=== PATIENT | male | born 1975 | race Caucasian/White ===

== ENCOUNTER 2016-06-29 15:01 | Emergency (ER) | payer OTHER ==
[~2016-06-29] VITALS: Ht 175.3 cm; Wt 76.0 kg
[2016-06-29 15:03] VITALS: Ht 175.3 cm; Wt 76.0 kg
[2016-06-29] MEDS ORDERED: HYDROmorphONE 1 MG/ML SYG IV STA (15:41)
[2016-06-29] MEDS ORDERED: ACETAMINOPHEN 500 MG TAB PO STA (15:41)
[2016-06-29] MEDS ORDERED: ONDANSETRON 4 MG INJ IV STA (15:41)
[2016-06-29 16:31] LABS: ADD SCAN DIFF NO
[2016-06-29 16:37] LABS: BASOPHILS % 0.3 % (0.0-2.0); EOSINOPHILS # 0.1 10^3/ul (0.0-0.5); EOSINOPHILS % 0.4 % (0.0-7.0); HEMATOCRIT 44.4 % (42.0-52.0); HEMOGLOBIN 15.1 g/dl (14.0-18.0); LYMPHOCYTES # 1.4 10^3/ul (0.8-2.9); LYMPHOCYTES % 9.1 % (15.0-51.0); MEAN CORPUSCULAR HEMOGLOBIN 30.6 pg (29.0-33.0); MEAN CORPUSCULAR VOLUME 90.1 fl (82.0-101.0); MEAN PLATELET VOLUME 10.1 fl (7.4-10.4); MONOCYTE # 1.4 10^3/ul (0.3-0.9); MONOCYTES % 8.8 % (0.0-11.0); NEUTROPHIL # 12.8 10^3/ul (1.6-7.5); PLATELET COUNT 270 10^3/UL (140-415); RED BLOOD COUNT 4.93 10^6/ul (4.70-6.10); WHITE BLOOD COUNT 15.7 10^3/ul (4.8-10.8)
[2016-06-29 16:52] LABS: ALBUMIN 4.5 g/dl (3.3-4.9); ALBUMIN/GLOBULIN RATIO 1.6; BILIRUBIN,INDIRECT 0.4 mg/dl (0-1.1); BILIRUBIN,TOTAL 0.4 mg/dl (0.2-1.3); CALCIUM 9.6 mg/dl (8.4-10.2); CREATININE 0.86 mg/dl (0.61-1.24); POTASSIUM 4.1 mmol/L (3.5-5.1); TOTAL PROTEIN 7.3 g/dl (6.1-8.1)
[2016-06-29] MEDS ORDERED: CIPROFLOXACIN 400MG/D5W 200 ML IVPB STA (17:18)
--- NOTE | 2016-06-29 17:47 | ERA ---
ER Documentation Chief Complaint Date/Time DATE: 06/29/16 TIME: 17:42 Chief Complaint RT EAR AND PAIN ON RT SIDE OF JAW HPI This is a 41 year old male presenting to the emergency department complaining of fever, right ear and jaw pain for two weeks. Patient states that he went to [facility] 2 weeks ago on 06/16/16 and was diagnosed with Otitis media and was given Augmentin for 10 days, patient states that he finished the antibiotic course and stated that he returned there since it did not improve on 06/27/2016 and was diagnosed with otitis externa and was given Cortisporin. Patient states that pain has worsened and he is now febrile. He states pain is radiating from his ear to his jaw. He was seen by his primary care physician Dr. Bridget Sawant who has sent him here for further evaluation and management. Patient states he has taken Dayquil at 10:30am without any relief. ROS All systems reviewed and are negative except as per history of present illness. Medications Home Meds Active Scripts Ibuprofen* (Ibuprofen*) 600 Mg Tablet, 600 MG PO Q6H Y for PAIN, #30 TAB Prov:BASIL MENDIOLA PA-C 06/29/16 Hydrocodone/Acetaminophen (Tubac 5-325 Tablet) 1 Each Tablet, 2 TAB PO Q6H Y for PAIN, #30 TAB Prov:BASIL MENDIOLA PA-C 06/29/16 Ciprofloxacin Hcl/Dexameth (Ciprodex Otic Suspension) 7.5 Ml Drops.susp, 4 DROP RIGHT EAR BID for 7 Days, EA Prov:BASIL MENDIOLA PA-C 06/29/16 Ciprofloxacin Hcl* (Ciprofloxacin Hcl*) 500 Mg Tablet, 500 MG PO BID for 10 Days , TAB Prov:BASIL MENDIOLA PA-C 06/29/16 Allergies Allergies: Coded Allergies: No Known Allergy (Unverified , 06/29/16) PMhx/Soc Medical and Surgical Hx: pt denies Medical Hx, pt denies Surgical Hx Hx Alcohol Use: No Hx Substance Use: No Hx Tobacco Use: No Smoking Status: Never smoker Physical Exam Vitals Vital Signs Date Time Temp Pulse Resp B/P Pulse Ox O2 Delivery O2 Flow Rate FiO2 06/29/16 19:19 98.5 89 18 115/58 97 Room Air 06/29/16 16:59 100.0 06/29/16 15:03 101.3 98 18 122/67 99 Physical Exam GENERAL: well-developed/well-nourished, in no apparent distress, non-toxic appearing HEAD: NC/AT, no swelling noted in frontal or maxillary areas. EARS: right TM is obscured from discharge and external ear swelling, positive mastoid tenderness on the right, left tympanic membrane is intact without erythema or effusion NARES: Patent THROAT: oropharynx non-erythematous without exudates, no tonsil enlargement EYES: Conjunctiva normal NECK: Supple, no lymphadenopathy PULM: CTA bilaterally, no rales, rhonchi, or wheezing heard CV: Normal S1S2, RRR, good capillary refill GI: Soft, non-distended, normal bowel sounds, non-tender BACK: No midline tenderness, no masses EXT No clubbing, cyanosis, or edema NEURO: Alert and Orientated SKIN: Intact, normal turgor PSYCH: Normal mood and mentation Result Diagram: 06/29/16 1610 06/29/16 1610 Results 24 hrs Laboratory Tests Test 06/29/16 16:10 White Blood Count 15.710^3/ul Red Blood Count 4.9310^6/ul Hemoglobin 15.1g/dl Hematocrit 44.4% Mean Corpuscular Volume 90.1fl Mean Corpuscular Hemoglobin 30.6pg Mean Corpuscular Hemoglobin Concent 34.0g/dl Red Cell Distribution Width 12.0% Platelet Count 85680^3/UL Mean Platelet Volume 10.1fl Neutrophils % 81.0% Lymphocytes % 9.1% Monocytes % 8.8% Eosinophils % 0.4% Basophils % 0.3% Nucleated Red Blood Cells % 0.0/100WBC Neutrophils # 12.810^3/ul Lymphocytes # 1.410^3/ul Monocytes # 1.410^3/ul Eosinophils # 0.110^3/ul Basophils # 0.010^3/ul Nucleated Red Blood Cells # 0.010^3/ul Sodium Level 138mmol/L Potassium Level 4.1mmol/L Chloride Level 105mmol/L Carbon Dioxide Level 25mmol/L Anion Gap 12 Blood Urea Nitrogen 8mg/dl Creatinine 0.86mg/dl Glucose Level 107mg/dl Lactic Acid Level 1.1mmol/L Calcium Level 9.6mg/dl Total Bilirubin 0.4mg/dl Direct Bilirubin 0.00mg/dl Indirect Bilirubin 0.4mg/dl Aspartate Amino Transf (AST/SGOT) 25IU/L Alanine Aminotransferase (ALT/SGPT) 35IU/L Alkaline Phosphatase 106IU/L Total Protein 7.3g/dl Albumin 4.5g/dl Globulin 2.80g/dl Albumin/Globulin Ratio 1.60 Lipase 43U/L Current Medications Medications (Trade) Dose Ordered Sig/Sammy Route PRN Reason Start Time Stop Time Status Last Admin Dose Admin Acetaminophen (Tylenol Tab) 1,000 mg ONCE STAT PO 06/29/16 15:41 06/29/16 15:46 DC 06/29/16 16:27 Hydromorphone HCl (Dilaudid) 0.5 mg ONCE STAT IV 06/29/16 15:41 06/29/16 15:46 DC 06/29/16 16:26 Ondansetron HCl 4 mg 4 mg ONCE STAT IV 06/29/16 15:41 06/29/16 15:46 DC 06/29/16 16:26 Ciprofloxacin/ Dextrose (Cipro Ivpb) 200 ml @ 200 mls/hr ONCE STAT IVPB 06/29/16 17:18 06/29/16 18:17 DC 06/29/16 17:24 Procedures/MDM This is a 41 year old male presenting to the emergency department complaining of fever, right ear and jaw pain for two weeks. Likely Otitis Externa with early mastoiditis. Patient states that he went to [facility] 2 weeks ago on 06/16/16 and was diagnosed with Otitis media and was given Augmentin for 10 days, patient states that he finished the antibiotic course and stated that he returned there since it did not improve on 06/27/2016 and was diagnosed with otitis externa and was given Cortisporin. Patient states that pain has worsened and he is now febrile. On examination, patient had edema and swelling of the right ear canal with discharge and mastoid tenderness. Patient was febrile and was given Tylenol. IV access established.Lab work was drawn. CBC did not show any evidence of anemia. Patient had mild leukocytosis. CMP did not show any evidence of renal, liver, or electrolyte abnormalities. Lipase was normal. UA did not show any evidence of hemoglobin or urinary tract infection. CT of the mastoids and ears was done and radiologist stated: 1. Narrowing of the right external auditory canal with suggestion of periauricular soft tissue swelling suspicious for otitis externa. Also, partial right mastoid and middle ear opacification which may reflect mastoiditis /otitis media. Correlate clinically. 2. Partial left mastoid air cell and minimal middle ear opacification along with thickened left tympanic membrane. Findings could also reflect mastoiditis and otitis media. Correlate clinically. I have consulted my supervising physician who suggested patient is appropriate for outpatient antibiotics Cipro and close follow-up with ENT specialist or . In the ED, patient was given 0.5mg Dilaudid, Cipro 500mg and Zofran through IV. Prescription Ciprodex, Cipro 500mg PO and Tubac was provided for outpatient. I have discussed the diagnostic testing with patient, discussed to follow-up with ENT. I discussed to return to the ER for any worsening signs or symptoms. Patient is hemodynamically stable, nontoxic appearing for discharge with precautions. He understands and agrees with this plan Departure Diagnosis: Primary Impression: Otitis externa Qualified Code: H60.501 - Acute otitis externa of right ear, unspecified type Additional Impression: Mastoiditis Qualified Code: H70.91 - Mastoiditis, right Condition: Stable BASIL MENDIOLA PA-C Jun 29, 2016 17:47
--- NOTE | 2016-06-29 18:06 | RADRPT ---
PROCEDURE: CT temporal bones without contrast CLINICAL INDICATION: Right ear pain TECHNIQUE: CT of the temporal bones without contrast was performed on a multidetector CT scanner, with multiplanar reformats. One or more of the following dose reduction techniques were used: Autom ated exposure control, adjustment in mA and / or kV according to patient size, use of iterative rajiv nstructive technique. CTDIvol = 43 mGy and DLP = 441 mGy-cm. COMPARISON: None available FINDINGS: Right temporal bone: There is narrowing of the external auditory canal, greater along the cartilaginous portion with sugg estion of soft tissue swelling in the periauricular region. There is scattered partial mastoid air cell opacification and partial opacification of the middle ear cavity. No osseous erosive changes a re identified and the ossicles and scutum appear intact. The bony labyrinth structures are within n ormal limits and the otic capsule is intact. The vestibular aqueduct is not enlarged. The internal auditory canal is normal in caliber. Left temporal bone: The external auditory canal is grossly patent. Tympanic membrane appears relatively thickened. The re is scattered partial mastoid air cell opacification and minimal opacification of the middle ear c avity along the attic. No osseous erosive changes are identified and the ossicles and scutum appear intact. The bony labyrinth structures are within normal limits and the otic capsule is intact. The vestibular aqueduct is not enlarged. The internal auditory canal is normal in caliber. Mild right maxillary sinus mucosal thickening or fluid is also seen. IMPRESSION: 1. Narrowing of the right external auditory canal with suggestion of periauricular soft tissue swel ling suspicious for otitis externa. Also, partial right mastoid and middle ear opacification which may reflect mastoiditis/otitis media. Correlate clinically. 2. Partial left mastoid air cell and minimal middle ear opacification along with thickened left tym panic membrane. Findings could also reflect mastoiditis and otitis media. Correlate clinically. RPTAT: VV .Gerald Silvestre MD, MD Date Time Electronically viewed and signed by .Gerald Silvestre MD, MD on 06/29/2016 18:06 .O/
[2016-06-29] MEDS ORDERED: CIPR500T4 PO (18:43)
[2016-06-29] MEDS ORDERED: CIPR7.5D4 RIGHT EAR (18:43)
[2016-06-29] MEDS ORDERED: IBUP-1542 PO (18:44)
[2016-06-29] MEDS ORDERED: HYDR-906 PO (18:44)
[2016-06-29 19:19] VITALS: BP 115/58; PULSE 89; RESP 18; TEMP 98.5
== END 2016-06-29 19:19 | disposition home or self-care (01) ==
LOC: FTE 15:01
DX: H60.501 Unspecified acute noninfective otitis externa, right ear (principal); H70.91 Unspecified mastoiditis, right ear
CPT/HCPCS: 36415; 70480; 80053; 83605; 83690; 85025; 87040; 96374; 96375; J0744; J1170; J2405; Z7502; Z7610

== ENCOUNTER 2017-06-20 09:43 | Emergency (ER) | END 2017-06-20 14:15 | disposition home or self-care (01) ==

== ENCOUNTER 2017-12-28 22:33 | Emergency (ER) | END 2017-12-28 23:48 | disposition home or self-care (01) ==

== ENCOUNTER 2017-12-31 07:06 | Emergency (ER) | END 2017-12-31 11:56 | disposition home or self-care (01) ==

== ENCOUNTER 2018-07-23 01:28 | Emergency (ER) | payer OTHER ==
[~2018-07-23] VITALS: Ht 180.3 cm; Wt 82.7 kg
[~2018-07-23 01:28] MED LIST: AMOX1TAB10 PO; CIPR500T4 PO; CIPR7.5D BOTH EARS; CIPR7.5D RIGHT EAR; HYDR-4011 PO; IBUP-1542 PO; NPH10OT RIGHT EAR
[2018-07-23 01:38] VITALS: Ht 180.3 cm; Wt 82.7 kg
[2018-07-23] MEDS ORDERED: ACET-141 PO (07:11)
[2018-07-23 07:22] VITALS: BP 128/68; PULSE 68; RESP 17
--- NOTE | 2018-07-23 07:23 | ERD ---
ER Documentation Chief Complaint Chief Complaint right wrist pain, fell off skateboard x 1 week ago, also c/o right earache ROS All systems reviewed and are negative except as per history of present illness. Medications Home Meds Active Scripts Acetaminophen* (Acetaminophen*) 500 MG Extra Strength Tablet, 500 MG PO Q4H PRN for PAIN AND OR ELEVATED TEMP, #30 TAB Prov:EUGENIAMYA 07/23/18 Hydrocodone/Acetaminophen ([place] 5-325 Tablet) 1 Each Tablet, 1 TAB PO Q6H PRN for PAIN, #5 TAB Prov:MEDILALUISSHANIKA F 12/31/17 Ciprofloxacin Hcl* (Ciprofloxacin Hcl*) 500 Mg Tablet, 500 MG PO BID for 5 Days, TAB Prov:PASILABAN,FRANCOISEAR F 12/31/17 Ciprofloxacin Hcl/Dexameth (Ciprodex Otic Suspension) 7.5 Ml Drops.susp, 4 DROP BOTH EARS BID for 7 Days, EA Prov:PASILABAN,FRANCOISEAR F 12/31/17 Hydrocodone/Acetaminophen ([place] 5-325 Tablet) 1 Each Tablet, 1 TAB PO Q6H PRN for PAIN, #7 TAB Prov:MERISSA BIRD PA-C 12/28/17 Neomycin/Polymyxin/Hydrocort* (Cortisporin* Otic) 10 Ml Susp, 4 DROP RIGHT EAR QID, #1 EA Prov:MERISSA BIRD PA-C 12/28/17 Amoxicillin/Potassium Clav (Amox-Clav 875-125 mg Tablet) 875-125 mg Tab, 1 TAB PO BID for 7 Days, #14 TAB Prov:MERISSA BIRD PA-C 12/28/17 Ibuprofen* (Ibuprofen*) 600 Mg Tablet, 600 MG PO Q6H PRN for PAIN, #30 TAB Prov:BASIL MENDIOLA PA-C 06/29/16 Hydrocodone/Acetaminophen ([place] 5-325 Tablet) 1 Each Tablet, 2 TAB PO Q6H PRN for PAIN, #30 TAB Prov:BASIL MENDIOLA PA-C 06/29/16 Ciprofloxacin Hcl/Dexameth (Ciprodex Otic Suspension) 7.5 Ml Drops.susp, 4 DROP RIGHT EAR BID for 7 Days, EA Prov:BASIL MENDIOLA PA-C 06/29/16 Ciprofloxacin Hcl* (Ciprofloxacin Hcl*) 500 Mg Tablet, 500 MG PO BID for 10 Days, TAB Prov:BASIL MENDIOLA Ariel CANTU 06/29/16 Allergies Allergies: Coded Allergies: No Known Allergy (Unverified , 12/28/17) PMhx/Soc Medical and Surgical Hx: pt denies Medical Hx, pt denies Surgical Hx Hx Alcohol Use: No Hx Substance Use: No Hx Tobacco Use: Yes Smoking Status: Current every day smoker Physical Exam Vitals Vital Signs Date Temp Pulse Resp B/P (MAP) Pulse Ox O2 O2 Flow FiO2 Time Delivery Rate 07/23/18 98.0 68 17 128/68 98 Room Air 07:22 (88) 07/23/18 98.2 74 18 122/71 99 01:38 (88) Physical Exam Const: No acute distress Head: Atraumatic Eyes: Normal Conjunctiva ENT: Normal External Ears, Nose and Mouth. Neck: Full range of motion. No meningismus. Resp: Clear to auscultation bilaterally Cardio: Regular rate and rhythm, no murmurs Abd: Soft, non tender, non distended. Normal bowel sounds Skin: No petechiae or rashes Back: No midline or flank tenderness Ext: No cyanosis, or edema Neur: Awake and alert Psych: Normal Mood and Affect Departure Diagnosis: Primary Impression: Wrist injury Encounter type: initial encounter Laterality: right Qualified Codes: S69.91XA - Unspecified injury of right wrist, hand and finger(s), initial encounter Condition: Fair Patient Instructions: Wrist Sprain Referrals: [facility] YOU HAVE RECEIVED A MEDICAL SCREENING EXAM AND THE RESULTS INDICATE THAT YOU DO NOT HAVE A CONDITION THAT REQUIRES URGENT TREATMENT IN THE EMERGENCY DEPARTMENT. FURTHER EVALUATION AND TREATMENT OF YOUR CONDITION CAN WAIT UNTIL YOU ARE SEEN IN YOUR DOCTORS OFFICE WITHIN THE NEXT 1-2 DAYS. IT IS YOUR RESPONSIBILITY TO MAKE AN APPOINTMENT FOR FOLOW-UP CARE. IF YOU HAVE A PRIMARY DOCTOR --you should call your primary doctor and schedule an appointment IF YOU DO NOT HAVE A PRIMARY DOCTOR YOU CAN CALL OUR PHYSICIAN REFERRAL HOTLINE AT IF YOU CAN NOT AFFORD TO SEE A PHYSICIAN YOU CAN CHOSE FROM THE FOLLOWING [facility] [address] [facility]. [facility] [address] [facility]. [facility] [address] [facility] [address] [facility] [address] [facility]. [facility]. [address] Additional Instructions: Call your primary care doctor TOMORROW for an appointment during the next 1-2 days.See the doctor sooner or return here if your condition worsens before your appointment time. MYA BELLO DO July 23, 2018 07:23
== END 2018-07-23 07:23 | disposition home or self-care (01) ==
LOC: FTE 01:28
DX: S69.91XA Unspecified injury of right wrist, hand and finger(s), initial encounter (principal); F17.210 Nicotine dependence, cigarettes, uncomplicated; V00.131A Fall from skateboard, initial encounter
CPT/HCPCS: 73110; Z7502